=== PATIENT | male | born 1990 | race Caucasian/White ===

== ENCOUNTER 2017-11-26 16:04 | Emergency (ER) | payer OTHER ==
--- NOTE | 2017-11-26 16:28 | PDOC ---
History of Present Illness - General History Source: Patient Exam Limitations: No Limitations - History of Present Illness Initial Comments: 11/26/17 17:54 The patient is a 27 year old male with no significant past medical history who presents to the ED s/p injury earlier today. 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 Patient is able to move his left thumb with pain. Denies loss of sensation. Denies any other symptoms. <Wesley Marin - Last Filed: 11/26/17 17:54> <Larry Walden - Last Filed: 11/26/17 18:19> - General Chief Complaint: Injury Stated Complaint: LACERATION LEFT THUMB Time Seen by Provider: 11/26/17 16:26 Past History <Wesley Marin - Last Filed: 11/26/17 17:54> - Past Medical History COPD: No - Immunization History Immunization Up to Date: Yes - Suicide/Smoking/Psychosocial Hx Smoking History: Never smoked Have you smoked in the past 12 months: No Information on smoking cessation initiated: No Hx Alcohol Use: No Drug/Substance Use Hx: No <Larry Walden - Last Filed: 11/26/17 18:19> - Past Medical History Allergies/Adverse Reactions: Allergies Allergy/AdvReac Type Severity Reaction Status Date / Time No Known Allergies Allergy Verified 11/26/17 16:05 Home Medications: Ambulatory Orders Cephalexin Monohydrate [Keflex] 500 mg PO Q12H #15 capsule 11/26/17 Review of Systems - Review of Systems Able to Perform ROS?: Yes Comments:: 11/26/17 17:54 CONSTITUTIONAL: Absent: fever, chills, diaphoresis, generalized weakness, malaise, loss of appetite HEENT: Absent: rhinorrhea, nasal congestion, throat pain, throat swelling, difficulty swallowing, mouth swelling, ear pain, eye pain, visual Changes CARDIOVASCULAR: Absent: chest pain, syncope, palpitations, irregular heart rate, lightheadedness , peripheral edema RESPIRATORY: Absent: cough, shortness of breath, dyspnea with exertion, orthopnea, wheezing, stridor, hemoptysis GASTROINTESTINAL: Absent: abdominal pain, abdominal distension, nausea, vomiting, diarrhea, constipation, melena, hematochezia GENITOURINARY: Absent: dysuria, frequency, urgency, hesitancy, hematuria, flank pain, genital pain MUSCULOSKELETAL: Absent: myalgia, arthralgia, joint swelling SKIN: + left thumb laceration Absent: rash, itching, pallor HEMATOLOGIC/IMMUNOLOGIC: Absent: easy bleeding, easy bruising, lymphadenopathy, frequent infections ENDOCRINE: Absent: unexplained weight gain, unexplained weight loss, heat intolerance, cold intolerance NEUROLOGIC: Absent: headache, focal weakness or paresthesias, dizziness, unsteady gait, seizure, mental status changes, bladder or bowel incontinence PSYCHIATRIC: Absent: anxiety, depression, suicidal or homicidal ideation, hallucinations. All Other Systems: Reviewed and Negative <Wesley Marin - Last Filed: 11/26/17 17:54> *Physical Exam - Vital Signs Last Vital Signs Temp Pulse Resp BP Pulse Ox 98.9 F 64 20 123/64 99 11/26/17 16:05 11/26/17 16:05 11/26/17 16:05 11/26/17 16:05 11/26/17 16:05 - Physical Exam Comments: 11/26/17 17:54 GENERAL: Well developed, well nourished. Awake and alert. No acute distress. HEENT: Normocephalic, atraumatic. PERRLA, EOMI. No conjunctival pallor. Sclera are non- icteric. Moist mucous membranes. Oropharynx is clear. NECK: Supple. Full ROM. No JVD. Carotid pulses 2+ and symmetric, without bruits. No thyromegaly. No lymphadenopathy. CARDIOVASCULAR: Regular rate and rhythm. No murmurs, rubs, or gallops. Distal pulses are 2+ and symmetric. PULMONARY: No evidence of respiratory distress. Lungs clear to auscultation bilaterally. No wheezing, rales or rhonchi. ABDOMINAL: Soft. Non-tender. Non-distended. No rebound or guarding. No organomegaly. Normoactive bowel sounds. MUSCULOSKELETAL Normal range of motion at all joints. No bony deformities or tenderness. No CVA tenderness. EXTREMITIES: No cyanosis. No clubbing. No edema. No calf tenderness. SKIN: + 2cm laceration oriented transversally over the dorsal aspect of the 1st MCPJ, left hand. There is a partial laceration of the extensor tendon of approx 50%, with the tendon function still intact. capillary refill intact, no sensory deficit to the fingertip. Extension of the MCPJ and IPJ is full against resistance NEUROLOGICAL: PSYCHIATRIC: Cooperative. Good eye contact. Appropriate mood and affect. <Wesley Marin - Last Filed: 11/26/17 17:54> - Vital Signs Last Vital Signs Temp Pulse Resp BP Pulse Ox 98.9 F 64 20 123/64 99 11/26/17 16:05 11/26/17 16:05 11/26/17 16:05 11/26/17 16:05 11/26/17 16:05 <Larry Walden - Last Filed: 11/26/17 18:19> Procedures - Laceration/Wound Repair Left 1st digit Wound Length: to 2.5 cm Wound Explored: clean Wound's Depth, Shape: into muscle Irrigated w/ Saline: Yes Betadine Prep: Yes Anesthesia: 1% Lidocaine Wound Repaired With: Sutures Suture Size/Type: nylon Number of Sutures: 3 Splint Applied: Yes Type of Splint Applied: Thumb Spica Splint Progress: 11/26/17 17:55 Repair of laceration Local anesthetic was administered, 1% lidocaine plain, wound was pressed with betadine and thoroughly scrubbed and irrigated with normal saline The extensor tendon was fully exposed and the bulk of the tendon, about 50%, was still intact The tendon itself was not repaired but the skin was closed overtop with nylon sutures. Bacitracin was applied Wound was covered with gauze and a thumb spica splint was applied for mobilization. After splinting the patient was comfortable with no distal numbness, tingling or pain. Good motion of the fingertip an good capillary refill The tendon injury was explained as well as the need for follow up with hand specialist to ensure that healing occurs adequately and there is no future disabilities The patient seems to understand and agrees <Wesley Marin - Last Filed: 11/26/17 17:54> Medical Decision Making - Medical Decision Making 11/26/17 18:18 X-ray negative for fracture or foreign body As noted, there is a laceration of the extensor tendon of about 50%, but tendon function is intact. Wound was thoroughly irrigated, the tendon was not repaired, but the skin closed over the wound. Antibiotics were prescribed. The patient was referred to hand specialist for further treatment, making sure the patient understood the nature of the injury and the importance of follow-up. To try to prevent complete rupture of the tendon, a splint of the thumb and slight extension was applied. With the patient more comfortable afterwards and with no compression symptoms. <Larry Walden - Last Filed: 11/26/17 18:19> *DC/Admit/Observation/Transfer - Attestations Scribe Attestion: 11/26/17 17:57 Documentation prepared by Wesley Marin, acting as medical historian for Larry Torres MD <Wesley Marin - Last Filed: 11/26/17 17:54> - Discharge Dispostion Decision to Admit order: No <Larry Walden - Last Filed: 11/26/17 18:19> Diagnosis at time of Disposition: Laceration of thumb Qualifiers: Encounter type: initial encounter Damage to nail status: with damage Foreign body presence: without foreign body Laterality: left Qualified Code(s): S61.112A - Laceration without foreign body of left thumb with damage to nail, initial encounter - Discharge Dispostion Disposition: HOME Condition at time of disposition: Improved - Prescriptions Prescriptions: Cephalexin Monohydrate [Keflex] 500 mg PO Q12H #15 capsule - Patient Instructions Printed Discharge Instructions: DI for Laceration Repair -- Finger - Post Discharge Activity Forms/Work/School Notes: Back to Work
[2017-11-26 16:38] VITALS: BP 123/64; PULSE 64; TEMP 98.9; BMI 26.6
[2017-11-26] MEDS ORDERED: CEPHALEXIN MONOHYDRATE 500 MG CAPSULE (UD) PO ONE (17:57)
[2017-11-26] MEDS ORDERED: CEPHALEXIN MONOHYDRATE 500 MG CAPSULE (UD) ONE (17:58)
== END 2017-11-26 18:00 | disposition home or self-care (01) ==
LOC: FER 16:04
PROC: 0HQGXZZ Repair Left Hand Skin, External Approach (ICD-10-PCS; principal; 2017-11-26)
DX: S61.112A Laceration without foreign body of left thumb with damage to nail, initial encounter (principal); S66.222A Laceration of extensor muscle, fascia and tendon of left thumb at wrist and hand level, initial encounter; W26.0XXA Contact with knife, initial encounter; Y93.G1 Activity, food preparation and clean up; Y92.511 Restaurant or cafe as the place of occurrence of the external cause; Y99.0 Civilian activity done for income or pay
CPT/HCPCS: 73140-TC-LT-FY; 99282-25